=== PATIENT | female | born 1995 | race American Indian/Alaskan Native ===

== ENCOUNTER 2017-06-24 08:19 | Outpatient (CLI) | payer OTHER ==
--- NOTE | 2017-06-24 08:59 | Ultrasound Report ---
LEFT BREAST ULTRASOUND: 06/24/17 08:19:00 CLINICAL: 21-year-old with a clear left nipple discharge for 2 months. It is non-spontaneous and only identified when she expresses it from the nipple. COMPARISON: None. FINDINGS: Ultrasound the left breast(including all four quadrants and the retroareolar area) was performed and demonstrated normal fibroglandular structures. No mass, cyst, ductal dilatation, or shadowing. IMPRESSION: Normal left breast ultrasound. BI-RADS 1 - - Negative RECOMMENDATION: Clinical followup and repeat imaging if the discharge becomes spontaneous or becomes bloody.
== END 2017-06-24 08:20 | disposition home or self-care (01) ==
LOC: SPVWC 08:19
PROVIDERS: ATTEND Nurse Practitioner Family
DX: N64.52 Nipple discharge (principal)